=== PATIENT | male | born 1985 | race Caucasian/White ===

== ENCOUNTER 2016-09-13 17:30 | Emergency (ER) | payer OTHER ==
[2016-09-13 17:37] VITALS: RESP 16; O2SAT 97
--- NOTE | 2016-09-13 17:47 | EDPHY ---
H & P Stated Complaint: METAL WIRE STICKING OUT OF ARM Source: Patient - Personal History Current Tetanus/Diphtheria Vaccine: Yes Current Tetanus Diphtheria and Acellular Pertussis (TDAP): Yes - Medical/Surgical History Hx Asthma: No Hx Chronic Respiratory Disease: No Hx Diabetes: No Hx Cardiac Disease: No Hx Renal Disease: No Hx Cirrhosis: No Hx Alcoholism: No Hx HIV/AIDS: No Hx Splenectomy or Spleen Trauma: No Other PMH: IVDA,HEROINE USE, CLAVICLE FX, BIPOLAR,ADD,SCHIZO AFFECTIVE - Social History Smoking Status: Never smoked HPI/ROS: HPI CHIEF COMPLAINT: "I have a piece of metal in my left forearm" HISTORY OF PRESENT ILLNESS: this patient very pleasant 30 male significant past medical history for methamphetamine abuse, also has multiple piece of metal in his left upper extremity, abdominal wall and now a new piece of metal in his left wrist. He is incarcerated he presents from prison to the emergency room. He has a piece of metal sticking out of his left wrist. He tells me it has been in there over a week. No signs of infection. He tells me that was trying to pop assist when I asked him how long this piece of metal is he tells me it is rather long goes deep into his forearm. Tells me the other piece of metal in his left upper extremity been there for months as well as abdominal wall piece of metal for months he tells me that a needle broke off when he was doing IV methamphetamine shooting up. Denies any complaints he does state that the piece of metal on his left forearm is somewhat tender. this patient does tell me his tetanus shot is up-to-date. Past Medical History: Methamphetamine abuse Past Surgical History: denies significant surgical history Social History: incarcerated, history of methamphetamine abuse Family History: noncontributory ROS REVIEW OF SYSTEMS: A comprehensive 10 point review of systems is otherwise negative aside from elements mentioned in the history of present illness. Exam Constitutional triage nursing summary reviewed, vital signs reviewed, awake/ alert. Eyes normal conjunctivae and sclera, EOMI, PERRLA. HENT normal inspection, atraumatic, moist mucus membranes, no epistaxis, neck supple/ no meningismus, no raccoon eyes. Respiratory clear to auscultation bilaterally, normal breath sounds, no respiratory distress, no wheezing. Cardiovascular rate normal, regular rhythm, no murmur, no edema, distal pulses normal. Gastrointestinal soft, non-tender, no rebound, no guarding, normal bowel sounds, no distension, no pulsatile mass. Genitourinary no CVA tenderness. Musculoskeletal no midline vertebral tenderness, full range of motion, no calf swelling, no tenderness of extremities, no meningismus, good pulses, neurovascularly intact. Skin left wrist lateral aspect ulnar aspect: there is a piece of metal sticking vertically up out of the wrist. No signs of redness, pus, drainage, infection, no crepitus,npink, warm, & dry, no rash, skin atraumatic. Neurologic awake, alert and oriented x 3, AAOx3, moves all 4 extremities equally, motor intact, sensory intact, CN II-XII intact, normal cerebellar, normal vision, normal speech. Psychiatric normal mood/affect. Heme/Lymph/Immune no lymphadenopathy. Differential Diagnosis: Foreign body in left wrist Medical Decision Making:this patient will have a x-ray of the left wrist to rule out how large this foreign body is. may be old removed in the emergency room if it is extensively imbedded in his wrist may need surgical follow-up. Re-evaluation: 1856: We did make an attempt to remove this piece of metal from his left forearm however the patient pushed the piece of metal further in his left forearm and now I am unable to see it on direct visualization it appears to be pretty deep by unable to remove it. This is now his 3rd piece of metal that he self-inflicted underneath his skin. I will place this patient on Keflex he can be discharged from the emergency room needs to watch this site for infection. If he desires to have this piece of metal removed from his wrist I do recommend he follows up with General surgery. (Seferino Harrell) Constitutional: Initial Vital Signs Temperature (C) 36.8 C 09/13/16 17:35 Heart Rate 60 09/13/16 17:35 Respiratory Rate 16 09/13/16 17:35 Blood Pressure 120/74 09/13/16 17:35 O2 Sat (%) 97 09/13/16 17:35 O2 Delivery Mode Room Air Allergies/Adverse Reactions: No Known Allergies Allergy (Verified 09/13/16 17:35) Home Medications: Medication Instructions Recorded Benzotropol 04/07/13 [place] Aspartate [Lithate] 5 mg PO 04/07/13 Paliperidone [Invega] 1.5 mg PO 04/07/13 Cephalexin [Keflex] 500 mg PO Q6H #28 cap 09/13/16 Medical Decision Making ED Course/Re-evaluation: Procedure: Foreign body removal Consent: verbal Location: left distal forearm, dorsal Anesthesia: lidocaine with epinephrine, 1%, 5 cc Procedure description: small metal foreign body of the left forearm. Patient placed this intentionally. Prior to the attempted procedure, there was an x- ray did show a portion of this that was extruding from the site. Upon examination and attempting the procedure, the patient likely had pressed this further to the skin as it is no longer protruding. I did clean the wound and anesthetized. Upon exploration of the wound, I could not locate the foreign body. The procedure was abandoned, bacitracin was applied, and a dressing was applied. No complications. (Tomy Mcneal) Departure - Departure Disposition: Home, Routine, Self-Care Clinical Impression: Foreign body of wrist Qualifiers: Encounter type: initial encounter Laterality: left Qualifier Code: (S60.852A) Superficial foreign body of left wrist, initial encounter Condition: Good Instructions: Foreign Body Ingestion (ED) Additional Instructions: 1.Your medically cleared for prison. 2. Please watch closely for signs of infection where you place this piece of metal underneath her skin. 3. If he desired to have this removed you need to follow up with surgery I am unable to remove this deep piece of metal in the emergency room. Referrals: NONE *PRIMARY CARE P,. [Primary Care Provider] - As per Instructions Thierno Christine MD [Medical Doctor] - As per Instructions Prescriptions: Cephalexin [Keflex] 500 mg PO Q6H #28 cap
--- NOTE | 2016-09-13 18:22 | DX ---
Three views, left wrist Indication: Broken needle. Comparisons: None relevant. Findings: There is a curvilinear radiopaque foreign body overlying the ulna on the lateral view. It is nearly to the skin surface. There is some adjacent soft tissue swelling. The bones are unremarkabl e. Impression: Curvilinear radiopaque foreign body consistent with a broken needle or wire overlying the posterior aspect of the ulna, best seen on the lateral film. Critical results relayed by Dr. Efe Wilson to Dr. Seferino Harrell on September 13, 2016 at 1817 hours .
[2016-09-13] MEDS ORDERED: CEPHALEXIN 500 MG CAP PO ONE (18:59)
[2016-09-13] MEDS ORDERED: IBUPROFEN 200 MG TAB PO ONE (19:05)
[2016-09-13 19:15] VITALS: BP 113/75; PULSE 65; TEMP 97.5
== END 2016-09-13 19:15 | disposition home or self-care (01) ==
DX: S60.852A Superficial foreign body of left wrist, initial encounter (principal); W45.8XXA Other foreign body or object entering through skin, initial encounter

== ENCOUNTER 2016-09-21 08:25 | Day surgery (SDC) | payer OTHER ==
[~2016-09-21 08:25] MED LIST: BUPIVACAINE 0.5% 30 ML SDV ONE; LIDOCAINE 1% 30 ML SDV ONE; SKIN ADHESIVE (DERMABOND) 1 EACH TP ONE
[2016-09-21] MEDS ORDERED: LIDOCAINE 1% 5 ML SDV ID PRN (09:05)
[2016-09-21] MEDS ORDERED: LR 1,000 ML IV ONE (09:05)
[2016-09-21] MEDS ORDERED: ceFAZolin 2 GM/DEXTROSE 100 ML IV ONE (10:00)
[2016-09-21] MEDS ORDERED: MIDAZOLAM 2 MG/2 ML VIAL ONE (10:47)
[2016-09-21] MEDS ORDERED: LIDOCAINE 2% 100 MG/5 ML SYR IVP ONE (10:47)
[2016-09-21] MEDS ORDERED: fentaNYL 100 MCG/2 ML INJ ONE (10:47)
[2016-09-21] MEDS ORDERED: PROPOFOL/EMULSION 500 MG/50 ML BOTTLE IV ONE (10:47)
[2016-09-21] MEDS ORDERED: ONDANSETRON 4 MG/2 ML VIAL ONE (11:01)
[2016-09-21] MEDS ORDERED: KETOROLAC 30 MG/1 ML SDV ONE (11:23)
--- NOTE | 2016-09-24 12:47 | GOP ---
[f rep st] OPERATIVE REPORT DATE OF OPERATION: 09/21/2016 SURGEON: Berry Taylor MD PORTER HEAD: Zoey Blank PA-C ANESTHESIA: Deep sedation was used. ANESTHESIOLOGIST: Dr. Velasco. PREOPERATIVE DIAGNOSIS: Foreign body, left upper extremity, with pain. POSTOPERATIVE DIAGNOSIS: Foreign body, left upper extremity, with pain. PROCEDURE PERFORMED: Excision foreign body. FINDINGS: SPECIMENS: Approximately a 3 cm curvilinear object was removed from the patient's arm and sent for karol little pathology. INDICATIONS: This is a 30-year-old gentleman who presents on 09/21/2016 for elective removal of fore ign body, left upper extremity, self-inflicted wound several years ago in the left upper extremity, p osterior aspect, seen best with C-arm manipulation. DESCRIPTION OF PROCEDURE: The patient was brought into the operating room. After induction of IV se dation, his left arm was prepped and draped with chlorhexidine. C-arm was prepared. The patient had time-out procedure performed to identify him by 2 independent variables. After identification of th e patient, local anesthetic was infused in the skin and subcutaneous tissues of his left upper arm an d with C-arm guidance dissection was made into the muscle where an encapsulated metallic object was i dentified and removed. Hemostasis was assured. The incision was closed in layers using 3-0 Polysorb and 4-0 Monocryl. Dermabond was applied. The patient was awakened, taken to recovery room in stabl e condition. No immediate complications. COMPLICATIONS: There were none. /[id number]/MODL
== END 2016-09-21 12:15 ==
LOC: FSGY 08:25
PROVIDERS: ATTEND Surgery
PROC: 0KC80ZZ Extirpation of Matter from Left Upper Arm Muscle, Open Approach (ICD-10-PCS; principal; 2016-09-21 10:00)
DX: S40.852A Superficial foreign body of left upper arm, initial encounter (principal); L03.114 Cellulitis of left upper limb; X58.XXXA Exposure to other specified factors, initial encounter
CPT/HCPCS: J1885; J2001; J2250; J2405; J2704; J3010